=== PATIENT | male | born 1990 | race Caucasian/White ===

== ENCOUNTER 2024-07-15 13:20 | Emergency (ER) | payer BC, SELFPAY ==
[2024-07-15 13:26] VITALS: BP 150/80; PULSE 69; RESP 16; TEMP 36.9; O2SAT 99
[2024-07-15 13:59] VITALS: BP 150/80; PULSE 69; RESP 16; TEMP 36.9; O2SAT 99
--- NOTE | 2024-07-15 14:00 | ED.DENTAL ---
HPI - Dental/Oral General Chief complaint: Dental/Oral Stated complaint: swelling right jaw area Source: patient Mode of arrival: ambulatory History of Present Illness HPI Narrative: 34 y/o male presented for c/o right jaw pain and swelling. Onset yesterday. Reports a history of poor dentition does not have a dentist. Says he has applied ice to the face without improvement. Has not taken anything for pain. Denies difficulty maintaining secretions, n/v/d/f/c. Complaint: tooth pain Related Data Allergies Allergy/AdvReac Type Severity Reaction Status Date / Time No Known Allergies Allergy Verified 07/15/24 13:21 Review of Systems Review of Systems: CONSTITUTIONAL: Denies body aches, fever, chills ENT: Denies rhinorrhea, congestion, sore throat, or otalgia. Reports right lower dental pain and swelling CARDIOVASCULAR: Denies chest pain, palpitations RESPIRATORY: Denies cough or dyspnea. SKIN: Denies rash, itching, or wounds. MUSCULOSKELETAL: Denies myalgia. NEUROLOGIC: Denies headache, numbness, tingling, or weakness. [facility] Social History Social History (Updated 07/15/24 @ 14:09 by Gracie Michel, PHYSIC[facility]) Smoking packs per day: 1 Smoking cigarettes per day: 20.0 Smoking status: Current every day smoker Tobacco type: cigarettes Comments At time of signature, I have reviewed and agree with nursing past medical, surgical, social and family history unless otherwise noted. Please see nursing chart for further information. There is no relevant family history pertinent to the presenting complaint Exam Narrative: GENERAL: Appears in pain; no acute distress. HEAD: Normocephalic, atraumatic. EYES: EOMI. No redness or drainage. Conjunctivae normal. ENT: Dental pain location of #29-30 area with jaw swelling noted to face, tender gum; unable to tolerate full exam due to pain when touching the cheek. Mucous membranes pink and moist. TMs normal bilaterally. Throat normal. no dysphagia, odynophagia, dysphonia, or dyspnea. No uvular deviation or soft palate edema. NECK: Normal AROM. No lymphadenopathy. no induration below mandible, no neck pain CHEST: No respiratory distress. HEART: Regular rate and rhythm. NEURO: Alert and oriented x3. Course Course Emergency Course: Patient is aware of diagnosis, understands and agrees to treatment plan. Anticipatory guidance given. Patient agrees to follow-up as directed and is aware of reasons to seek care at the emergency department. Portions of this record may have been created with voice recognition software Level of Care: Express Care Visit Vital Signs Vital signs: Vital Signs Temperature 98.4 F 07/15/24 13:26 Pulse Rate 69 07/15/24 13:26 Respiratory Rate 16 07/15/24 13:26 Blood Pressure 150/80 H 07/15/24 13:26 Pulse Oximetry 99 07/15/24 13:26 Oxygen Delivery Room Air 07/15/24 13:26 Temperature 98.4 F 07/15/24 13:59 Pulse Rate 69 07/15/24 13:59 Respiratory Rate 16 07/15/24 13:59 Blood Pressure 150/80 H 07/15/24 13:59 Pulse Oximetry 99 07/15/24 13:59 Oxygen Delivery Room Air 07/15/24 13:59 MDM - Dental/Oral MDM Narrative Medical decision making narrative: Patients pain and complaint coupled with physical findings are consistent with dental abscess There are no focal signs of space occupying lesions that are compromising to the airway;Patient is non-toxic appearing. The floor of the mouth is soft with no signs of Teo's Angina. Patient is without trismus or drooling and able to swallow secretions. Patient is felt appropriate for discharge home with dental follow up. Discharge Plan Discharge Clinical Impression: Dental abscess Patient Disposition: Home, Self-Care Condition: Stable Instructions: Antibiotic Form, Dental Abscess (ED) Additional Instructions: Take antibiotic as directed May apply heat or ice to the face Gentle brushing and flossing. Rinse mouth with warm salt water at least 2 times a day. Alternate Tylenol and ibuprofen as needed for pain Follow-up with the dentist as soon as possible--see the list provided Go to the ER for any worsening symptoms or concerns Prescriptions: New ibuprofen 800 mg tablet 800 mg PO TID PRN (Reason: pain) Qty: 15 0RF lidocaine HCl [Lidocaine Viscous] 2 % solution 1 applic mucous membrane TID PRN (Reason: pain) Qty: 100 0RF Rx Instructions: apply with cotton swab to site of pain amoxicillin-pot clavulanate 875-125 mg tablet 1 tablet PO Q12H 10 Days Qty: 20 0RF Follow-up/Referrals: PHYSICIAN,GIS SPECIALIST [Primary Care Provider] - Stand Alone Forms: Work/School Release IP Time of Disposition: 14:06
== END 2024-07-15 14:09 | disposition home or self-care (01) ==
PROVIDERS: Emergency Provider Nurse Practitioner Family
DX: K04.7 Periapical abscess without sinus (principal); F17.210 Nicotine dependence, cigarettes, uncomplicated
CPT/HCPCS: 99203; G0463